=== PATIENT | female | born 1995 | race Caucasian/White ===

== ENCOUNTER 2022-04-16 15:11 | Emergency (ER) | payer SELFPAY ==
[2022-04-16 16:41] LABS: CARBON DIOXIDE,CO2 27.2 mmol/L (21.0-32.0); POTASSIUM,K 3.9 mmol/L (3.5-5.1)
== END 2022-04-16 17:52 | disposition home or self-care (01) ==
LOC: MW.ED 15:11
DX: O20.0 Threatened abortion (principal); Z88.2 Allergy status to sulfonamides
CPT/HCPCS: 36415; 80053; 84702; 85027; 86900; 86901; 99283; 99284

== ENCOUNTER 2022-04-16 21:55 | Emergency (ER) | payer SELFPAY ==
[2022-04-16] MEDS ORDERED: Sodium Chloride 0.9% 1,000 ML IV ONE (22:09)
[2022-04-16 23:26] LABS: CARBON DIOXIDE,CO2 27.5 mmol/L (21.0-32.0); POTASSIUM,K 3.3 mmol/L (3.5-5.1)
== END 2022-04-17 | disposition home or self-care (01) ==
LOC: MW.ED 21:55
DX: O03.9 Complete or unspecified spontaneous abortion without complication (principal); Z88.2 Allergy status to sulfonamides
CPT/HCPCS: 36415; 76817; 80053; 84702; 85025; 86900; 86901; 96360; 99284; J7030; 99283

== ENCOUNTER 2022-06-18 16:52 | Emergency (ER) | payer MEDICAID ==
[2022-06-18] MEDS ORDERED: Sodium Chloride 0.9% 1,000 ML IV ONE (17:51)
== END 2022-06-18 19:40 | disposition left against medical advice (07) ==
LOC: MW.ED 16:52
DX: Z53.21 Procedure and treatment not carried out due to patient leaving prior to being seen by health care provider (principal)

== ENCOUNTER 2022-07-10 18:18 | Emergency (ER) | payer SELFPAY ==
[2022-07-10] MEDS ORDERED: Sodium Chloride 0.9% 10 ML Syringe FLUSH PRN (18:39)
[2022-07-10] MEDS ORDERED: Sodium Chloride 0.9% 2.5 ML Syringe FLUSH PRN (18:39)
[2022-07-10] MEDS ORDERED: Lactated Ringers 1,000 ML IV ONE (19:27)
[2022-07-10] MEDS ORDERED: diphenhydrAMINE 50 MG/ML SDV IVPUSH ONE (19:27)
[2022-07-10] MEDS ORDERED: Metoclopramide 10 MG/2 ML SDV IVPUSH ONE (19:27)
[2022-07-10 20:02] LABS: CARBON DIOXIDE,CO2 26.3 mmol/L (21.0-32.0); POTASSIUM,K 3.4 mmol/L (3.5-5.1)
== END 2022-07-10 20:59 | disposition home or self-care (01) ==
LOC: MW.ED 18:18
DX: O99.891 Other specified diseases and conditions complicating pregnancy (principal); R51.9 Headache, unspecified; Z20.822 Contact with and (suspected) exposure to COVID-19; Z88.2 Allergy status to sulfonamides; Z3A.08 8 weeks gestation of pregnancy
CPT/HCPCS: 36415; 76817; 80053; 81003; 84702; 85025; 85610; 87635; 93005; 96361; 96374; 96375; 99284; J1200; J2765; J3490; J7120; 93010; 99283; U0002